=== PATIENT | male | born 1950 | race Caucasian/White ===

== ENCOUNTER 2022-04-02 11:09 | Day surgery (SDC) | payer MEDICARE ==
[~2022-04-02] VITALS: Ht 182.9 cm; Wt 84.9 kg
[2022-04-02] VITALS (8 sets, daily range): BP systolic 94–135; BP diastolic 50–78
[2022-04-02] MEDS ORDERED: ZOLP10TA PO (11:58)
[2022-04-02] MEDS ORDERED: HYDR-3972 PO (11:58)
[2022-04-02] MEDS ORDERED: OMEP40CA21 PO (11:58)
[2022-04-02] MEDS ORDERED: METF-438 PO (11:58)
[2022-04-02] MEDS ORDERED: CYCL-1 PO (11:58)
[2022-04-02] MEDS ORDERED: FLUT1BLS4 (12:00)
[2022-04-02] MEDS ORDERED: ATOR40TA PO (12:00)
[2022-04-02 12:13] LABS: BASOPHILS % (AUTO) 0.4 % (0-1); EOSINOPHILS # (AUTO) 0.1 X10'3 (0-0.9); EOSINOPHILS % (AUTO) 0.7 % (0-6); HEMATOCRIT 35.6 % (42.0-52.0); LYMPHOCYTES # (AUTO) 0.3 X10'3 (1.1-4.8); LYMPHOCYTES % (AUTO) 3.3 % (21-51); MEAN CORPUSCULAR HEMOGLOBIN 31.2 PG (27.0-31.0); MEAN CORPUSCULAR HGB CONC 33.8 g/dL (33.0-36.5); MEAN CORPUSCULAR VOLUME 92.4 FL (78-98); MEAN PLATELET VOLUME 6.9 FL (7.4-10.4); MONOCYTES # (AUTO) 0.8 X10'3 (0-0.9); NEUTROPHILS # (AUTO) 8.4 X10'3 (1.8-7.7); NEUTROPHILS % (AUTO) 87.6 % (42-75); PLATELET COUNT 425 X10'3 (140-440); RED BLOOD COUNT 3.86 X10'6 (4.70-6.10); RED CELL DISTRIBUTION WIDTH 14.3 % (11.5-14.5); WHITE BLOOD COUNT 9.6 X10'3 (4.5-11.0)
[2022-04-02] MEDS ORDERED: midazolam 1 mg/ML 2ml injection ONE (12:46)
[2022-04-02] MEDS ORDERED: LIDOcaine 1%/PF 5ML 10 MG/ML VIAL ONE (12:46)
[2022-04-02] MEDS ORDERED: fentaNYL/PF 50MCG/1 ML 2ML syringe ONE (12:46)
[2022-04-02] MEDS ORDERED: gelatin sponge, absorbable (Gelfoam 12-7MM) sponge TP ONE (13:09)
[2022-04-02] MEDS ORDERED: diphenhydrAMINE 50 mg/ml inj ONE (13:10)
== END 2022-04-02 15:30 | disposition home or self-care (01) ==
LOC: SSTAY O 11:09
PROVIDERS: ATTEND Preventive Medicine Aerospace Medicine
DX: K76.89 Other specified diseases of liver (principal); C78.7 Secondary malignant neoplasm of liver and intrahepatic bile duct; C34.11 Malignant neoplasm of upper lobe, right bronchus or lung; Z79.899 Other long term (current) drug therapy
CPT/HCPCS: 36415; 47000; 76942; 85025; 99152; J1200; J2250; J3010; J3490; J7030